=== PATIENT | male | born 1955 | race Caucasian/White ===

== ENCOUNTER 2022-10-25 17:46 | Emergency (ER) | payer MEDICARE, OTHER ==
[2022-10-25] MEDS ORDERED: HYDROmorphone 1 MG/ML Syringe IM ONE (18:53)
== END 2022-10-25 21:00 | disposition home or self-care (01) ==
LOC: JD.ED 17:46
DX: R07.81 Pleurodynia (principal); E11.9 Type 2 diabetes mellitus without complications; Z88.2 Allergy status to sulfonamides; Z88.8 Allergy status to other drugs, medicaments and biological substances
CPT/HCPCS: 71045; 73030; 73502; 96372; 99283; J1170